=== PATIENT | female | born 1990 | race Two or more races ===

== ENCOUNTER 2019-02-04 09:20 | Inpatient (IN) | payer OTHER ==
[2019-02-04] MEDS: ELECTROLYTE-148 SOLN 1,000 ML IV SCH ×3 (10:00→22:00)
[2019-02-04 10:27] LABS: BASO % 0.3 % (0-2.0); HEMATOCRIT 33.6 % (32.4-45.2); LYMPH % 18.9 % (8-40); MCH 28.5 pg (25.7-33.7); MCHC 32.9 g/dl (32.0-36.0); MEAN CELL VOLUME 86.8 fl (80-96); MEAN PLT VOLUME 10.5 fl (7.5-11.1); MONO % 4.7 % (3.8-10.2); NEUT % 75.1 % (42.8-82.8); PLATELET COUNT 191 K/MM3 (134-434); RBC 3.87 M/mm3 (3.60-5.2); RDW 15.2 % (11.6-15.6); WHITE BLOOD COUNT 9.9 K/mm3 (4.0-10.0)
[2019-02-04 10:41] LABS: INR 0.88 (0.83-1.09); PROTHROMBIN TIME (PATIENT) 10.4 SEC (9.7-13.0)
[2019-02-04 10:55] LABS: BLOOD UREA NITROGEN 6.6 mg/dL (7-18); CALCIUM 8.9 mg/dL (8.5-10.1); CREATININE 0.9 mg/dL (0.55-1.3); POTASSIUM 3.6 mmol/L (3.5-5.1)
--- NOTE | 2019-02-04 11:05 | HP ---
Admitting History and Physical - Primary Care Physician PCP: Ron Rawls - Admission Chief Complaint: induction of labor History Source: Patient Limitations to Obtaining History: No Limitations - Past Medical History WEIR FISHER: No: Alzheimer's, CVA, Dementia, Migraine, Multiple Sclerosis, Peripheral Neuropathy, Parkinson's, Seizure, Syncope, TIA, Vertigo, Other Cardiovascular: No: AFIB, Aneurysm, Aortic Insufficiency, Aortic Stenosis, CAD, CHF, Deep Vein Thrombosis, HTN, Hyperlipdemia, UT, Mitral Insufficiency, Mitral Stenosis, Murmur, Pulmonary Hypertension, Other Pulmonary: No: Asthma, Bronchitis, Cancer, COPD, O2 Dependent, Pneumonia, Previously Intubated, Pulmonary Embolus, Pulmonary Fibrosis, Sleep Apnea, Other Gastrointestinal: No: Ascites, Cancer, Constipation, Crohn's Disease, Diverticulitis, Diverticulosis, Esophageal Varices, Gastritis, GERD, GI Bleed, Hemorrhoids, Hiatal Hernia, Inflamatory Bowel Disease, Irritable Bowel Disease, Pancreatitis, Peptic Ulcer Disease, Ulcerative Colitis, Other Hepatobiliary: No: Cirrhosis, Cholelithiasis, Cholecystitis, Choledocholithiasis , Hepatitis A, Hepatitis B, Hepatitis C, Other Renal/: No: Renal Failure, Renal Inusuff, BPH, Cancer, Hematuria, Hemodialysis , Neurogenic Bladder, Renal Calculi, UTI, Other Reproductive: No: Ectopic , Endometriosis, Fibroids, PID, Polycystic Ovary Syndrome, Postmenopausal, Other Heme/Onc: No: Anemia, B12 Deficiency, Bleeding Disorder, Cancer, Current Chemotherapy, Current Radiation Therapy, Hemochromatosis, Hypercoaguable State, Myeloproliferative Synd, Sickle Cell Disease, Sickle Cell Trait, Thrombocytopenia, Other Infectious Disease: No: AIDS, C-Diff, Herpes Zoster, HIV, MRSA, STD's, Tuberculosis, VREF, Other Psych: No: Addictions, Anxiety, Bipolar, Depression, Panic, Psychosis, Schizophrenia, Other Musculoskeletal: No: Bursitis, Chronic low back pain, Hemiparesis, Hemiplegia, Osteoarthritis, Paraplegia, Other Rheumatology: No: Fibromyalgia, Gout, Lupus, Rheumatoid Arthritis, Sarcoidosis, Vasculitis, Other ENT: No: Allergic Rhinitis, Sinusitis, Other Endocrine: No: Sonoma's Disease, Brown's Disease, Diabetes Insipidus, Diabetes Mellitus, Hyperparathyroidism, Hyperthyroidism, Hypothyroidism, Osteopenia, SIADH, Other Dermatology: No: Basal Cell, Cellulitis, Eczema, Melanoma, Psoriasis, Squamous Cell, Other - Past Surgical History Past Surgical History: No: None, AAA Repair, AICD, Amputation, Appendectomy, Arthrosocopy, AV Fistula/Graft, Bariatric Surgery, Breast Biopsy, Bypass, CABG, Carotid Endarterectomy, Cataract Removal, Cholecystectomy, Colectomy, Colonoscopy, Colostomy, Craniotomy, , Cystectomy, Hernia Repair, Hysterectomy, Ileal Conduit, Ileosotomy, Joint Replacement, Kidney Transplant, Laminectomy, Liver Transplant, Mastectomy, Nephrectomy, Oopherectomy, Orchiectomy, Permanent Pacemaker, Prostatectomy, Splenectomy, Stent, Thoracotomy , TURP, Tonsillectomy, Tubal Ligation, Upper Endoscopy, Valve Replacement, Vasectomy, Vein Stripping/Ligation - Smoking History Smoking history: Never smoked - Alcohol/Substance Use Hx Alcohol Use: No - Social History History of Recent Travel: Yes (negative zika testing) Home Medications - Allergies Allergies/Adverse Reactions: Allergies Allergy/AdvReac Type Severity Reaction Status Date / Time No Known Allergies Allergy Verified 01/25/19 12:48 - Home Medications Home Medications: Ambulatory Orders Vit,Sergio 74/Iron/Folic [ Low Iron Tablet] 1 tab PO DAILY Family Medical History Family History: Unremarkable Review of Systems Findings/Remarks: regular contractions - Review of Systems Constitutional: reports: No Symptoms Eyes: reports: No Symptoms HENT: reports: No Symptoms Neck: reports: No Symptoms Cardiovascular: reports: No Symptoms Respiratory: reports: No Symptoms Gastrointestinal: reports: No Symptoms Genitourinary: reports: No Symptoms Breasts: reports: No Symptoms Reported Musculoskeletal: reports: No Symptoms Integumentary: reports: No Symptoms Neurological: reports: No Symptoms Endocrine: reports: No Symptoms Hematology/Lymphatic: reports: No Symptoms Psychiatric: reports: No Symptoms Physical Examination Vital Signs: as reported by nursing Findings/Remarks: 3/80/-3, intact membranes Constitutional: Yes: Well Nourished Eyes: Yes: WNL HENT: Yes: WNL Neck: Yes: WNL Cardiovascular: Yes: WNL Respiratory: Yes: Regular Gastrointestinal: Yes: WNL ...Rectal Exam: Yes: WNL Renal/: Yes: WNL Breast(s): Yes: WNL Musculoskeletal: Yes: WNL Extremities: Yes: WNL Edema: Yes Edema: LLE: Trace, RLE: Trace Integumentary: Yes: WNL Neurological: Yes: Alert, Oriented ...Motor Strength: WNL Psychiatric: Yes: Alert, Oriented Labs: CBC, BMP 02/04/19 09:44 Imaging - Results Ultrasound: Pending, Report Reviewed (all reports reviewed. EFW on 01/21/19 approximately 3400g), Image Reviewed, Other Assessment/Plan 28 y/o G1 @ 39.5wks by late 3rd trimester sono, [place] care [place]. PAtient reported an DIDIER of 01/25/19 given by [place]. According to this undocumented due date gestation would be 41.3wks along. Patient underwent complete work up as outpatient. FH measures 41.5cm and induction of labor previously discussed with the patient. All questions answered. Plan for induction discussed with MFM Dr Gabriel for possible discrepancy in dating. He expressed agreement with plan. -Expectant management -Re-evaluate accordingly
[2019-02-04 11:33] VITALS: BMI 30.7
--- NOTE | 2019-02-04 13:47 | PN ---
Ante-Partal Exam - Subjective Subjective: Patient evaluated for progression of labor Vital Signs: Vital Signs Temperature 97.8 F 02/04/19 12:00 Pulse Rate 77 02/04/19 12:00 Respiratory Rate 20 02/04/19 12:00 Blood Pressure 117/77 02/04/19 12:00 O2 Sat by Pulse Oximetry (%) Bleeding: No Headache: No Visual changes: No Right upper quadrant pain: No - Contractions Contractions: Yes Regularity: Regular Intensity: Mild/Mod Monitor Mode: External - Exam during Labor Heart Rate: 130 Variability: Moderate Category: I Monitor Accelerations: Present Monitor Decelerations: None Exam: Vaginal Dilatation (cm): 5 Effacement (%): 80 Amniotic Membrane Status: Intact Presentation: Vertex Station: -3 (ballotable) - Assessment/Plan Assessment/Plan: Active labor, FHT cat I, declined pain control, AROM held off due to ballotable head. -Expectant management -re-evaluate accordingly
[2019-02-04] MEDS ORDERED: BUTORPHANOL TARTRATE 1 MG/ML VIAL IVPB ONE (14:05)
--- NOTE | 2019-02-04 17:34 | PN ---
Ante-Partal Exam - Subjective Subjective: Patient evaluated for pain Vital Signs: Vital Signs Temperature 98.4 F 02/04/19 14:00 Pulse Rate 77 02/04/19 14:00 Respiratory Rate 18 02/04/19 14:00 Blood Pressure 125/75 02/04/19 14:00 O2 Sat by Pulse Oximetry (%) Bleeding: No Headache: No Visual changes: No Right upper quadrant pain: No - Contractions Contractions: Yes Regularity: Regular Intensity: Mod/Strong Monitor Mode: External - Exam during Labor Heart Rate: 130 Variability: Moderate Category: I Monitor Accelerations: Present Monitor Decelerations: None Exam: Vaginal Dilatation (cm): 5 Effacement (%): 80 Amniotic Membrane Status: Ruptured Amniotic Fluid: Clear Presentation: Vertex Station: -3 - Assessment/Plan Assessment/Plan: regular contractions, reassuring status, S/P AROM with clear fluid. Patient desires Epidural -Epidural ok -Re-check post epidural
[2019-02-04] MEDS ORDERED: NALOXONE HCL 0.4 MG/ML VIAL IVPUSH PRN (17:38)
[2019-02-04] MEDS ORDERED: LIDO 2%/EPI 1:200000 PRESRVFRE (20 ML SDVIAL) ONE ×2 (17:44→23:14)
[2019-02-04] MEDS: FENTANYL/BUPIVACAINE/NS/PF - PCEA - 50 ML DISP.SYRIN EP SCH ×2 (18:05→21:55)
[2019-02-04] MEDS ORDERED: FENTANYL/BUPIVACAINE/NS/PF - PCEA - 50 ML DISP.SYRIN EP ONE ×2 (18:08→21:52)
--- NOTE | 2019-02-04 19:43 | PN ---
Ante-Partal Exam - Subjective Subjective: Patient evaluated for post-epidural check. She feels comfortable Vital Signs: Vital Signs Temperature 97.8 F 02/04/19 18:00 Pulse Rate 86 02/04/19 19:27 Respiratory Rate 20 02/04/19 18:20 Blood Pressure 114/65 02/04/19 18:20 O2 Sat by Pulse Oximetry (%) 100 02/04/19 19:27 Bleeding: No Headache: No Visual changes: No Right upper quadrant pain: No - Contractions Contractions: Yes Regularity: Regular Intensity: Mod/Strong Monitor Mode: External - Exam during Labor Heart Rate: 150 Variability: Moderate Category: I Monitor Accelerations: Present Monitor Decelerations: None Exam: Vaginal Dilatation (cm): 7.5 Effacement (%): 90 Presentation: Vertex Station: -3 (asynclitic) Remarks: sutures palpated and internal digital rotation attempted - Assessment/Plan Assessment/Plan: 28 y/o G1 @ 39.5wks, late entry to care, active labor, S/P AROM, asynclitic, appropriate contraction pattern, reassuring status. -Expectant management
[2019-02-04] MEDS ORDERED: LIDOCAINE HCL 1% PRESERVATIVE FREE - 30ML VIAL ONE (21:17)
[2019-02-04] MEDS ORDERED: OXYTOCIN 20 UNITS in 0.9% NS 20 UNIT/1,000 ML INFUS.BAG IV ONE (21:17)
--- NOTE | 2019-02-04 21:50 | PN ---
Ante-Partal Exam - Subjective Subjective: Patient evaluated for progression of labor Vital Signs: Vital Signs Temperature 100.5 F H 02/04/19 21:00 Pulse Rate 88 02/04/19 20:30 Respiratory Rate 20 02/04/19 20:30 Blood Pressure 137/79 02/04/19 20:30 O2 Sat by Pulse Oximetry (%) 100 02/04/19 20:30 Bleeding: No Headache: No Visual changes: No Right upper quadrant pain: No - Contractions Contractions: Yes Regularity: Regular Intensity: Moderate Monitor Mode: External - Exam during Labor Heart Rate: 150 Variability: Minimal Category: II Monitor Accelerations: Absent Monitor Decelerations: Prolonged (recovered after intrauterine resuscitation efforts) Exam: Vaginal Dilatation (cm): 8 Effacement (%): 90 Amniotic Membrane Status: Ruptured Presentation: Vertex Station: -3 Remarks: asynclitic - Assessment/Plan Assessment/Plan: 28 y/o G1 @ 39.5wks, protracted labor, regular adequate contractions, S/P AROM and prolonged decel that recovered. Counseling carried out regarding incident. -re-evaluate -Continuous monitoring
[2019-02-04] MEDS ORDERED: CLINDAMYCIN PHOSPHATE 600 MG/4 ML VIAL ONE (22:40)
[2019-02-04] MEDS ORDERED: CLINDAMYCIN 900 MG PREMIX IVPB 900 MG/50 ML BAG IVPB ONE (22:43)
[2019-02-04] MEDS ORDERED: GENTAMICIN IVPB ONE (22:45)
[2019-02-04] MEDS ORDERED: DEXTROSE 5% IVPB ONE (22:45)
[2019-02-04] MEDS ORDERED: WATER IVPB ONE (22:45)
--- NOTE | 2019-02-04 22:50 | PN ---
Ante-Partal Exam - Subjective Subjective: Patient evaluated for maternal fever Vital Signs: Vital Signs Temperature 101.1 F H 02/04/19 22:00 Pulse Rate 93 H 02/04/19 21:55 Respiratory Rate 20 02/04/19 21:55 Blood Pressure 111/54 L 02/04/19 21:55 O2 Sat by Pulse Oximetry (%) 100 02/04/19 21:55 Bleeding: No Headache: No Visual changes: No Right upper quadrant pain: No - Contractions Contractions: Yes Regularity: Regular Intensity: Mod/Strong Monitor Mode: External - Exam during Labor Heart Rate: 150 Variability: Minimal, Moderate Category: II Monitor Accelerations: Absent Monitor Decelerations: None Exam: Vaginal Dilatation (cm): 8 Effacement (%): 90 Amniotic Membrane Status: Ruptured Presentation: Vertex Station: -3 (caput) - Assessment/Plan Assessment/Plan: 28 y/o @ 39.5wks, arrest of dilatation, FHT cat II, chorioamnionitis. Patient was counseled regarding indications for delivery due to arrest of dilatation -IV abx -Proceed with CD -Abx for 24 hours post-op
[2019-02-04] MEDS ORDERED: GENTAMICIN SO4 80 MG/2 ML VIAL ONE (23:02)
[2019-02-04] MEDS ORDERED: OXYTOCIN 20 UNITS in 0.9% NS 40 UNIT/2,000 ML INFUS.BAG IV ONE (23:14)
[2019-02-04] MEDS ORDERED: SUCCINYLCHOLINE CHLORIDE 200 MG/10 ML SYRINGE ONE (23:16)
[2019-02-04] MEDS ORDERED: PHENYLEPHRINE HCL 10 MG/1 ML SINGLE DOSE VIAL ONE (23:50)
[2019-02-04] MEDS ORDERED: SODIUM CHLORIDE 0.9% P/F 10 ML VIAL IJ ONE (23:51)
[2019-02-04] MEDS ORDERED: morphine SULFATE/PF 0.5 MG/ML (2cc Syringe - QUVA) ONE ×2 (23:55)
[2019-02-05 00:50] LABS: BASO % 0.6 % (0-2.0); EOS % 0.1 % (0-4.5); HEMATOCRIT 23.5 % (32.4-45.2); HEMOGLOBIN 7.5 GM/dL (10.7-15.3); MCH 28.3 pg (25.7-33.7); MEAN CELL VOLUME 88.2 fl (80-96); MEAN PLT VOLUME 9.7 fl (7.5-11.1); MONO % 4.6 % (3.8-10.2); NEUT % 83.7 % (42.8-82.8); PLATELET COUNT 140 K/MM3 (134-434); RBC 2.66 M/mm3 (3.60-5.2); RDW 15.4 % (11.6-15.6); WHITE BLOOD COUNT 14.1 K/mm3 (4.0-10.0)
[2019-02-05] MEDS ORDERED: oxyCODONE HCL 5 MG TABLET PO PRN (01:15)
--- NOTE | 2019-02-05 01:31 | OP ---
Operative Note - Note: Operative Date: 02/05/19 (dic#[id number]) Pre-Operative Diagnosis: Arrest of dilatation and chorioamnionitis Operation: LTCS Findings: see dictation Post-Operative Diagnosis: Same as Pre-op Surgeon: Ron Rawls Improvement Intern: Tani Emerson Anesthesia: Spinal Specimens Removed: placenta Estimated Blood Loss (mls): 900 Operative Report Dictated: Yes
[2019-02-05 01:48] LABS: BLOOD UREA NITROGEN 8.5 mg/dL (7-18); CREATININE 1.2 mg/dL (0.55-1.3); POTASSIUM 3.8 mmol/L (3.5-5.1)
[2019-02-05 01:49] LABS: ALBUMIN 1.6 g/dl (3.4-5.0); BILIRUBIN,TOTAL 1.2 mg/dL (0.2-1); TOT PROT 4.2 g/dl (6.4-8.2)
[2019-02-05 01:51] LABS: CALCIUM 6.9 mg/dL (8.5-10.1)
[2019-02-05] MEDS: OXYTOCIN 20 UNITS in 0.9% NS 20 UNIT/1,000 ML INFUS.BAG IV SCH (03:00)
--- NOTE | 2019-02-05 04:05 | RAPID ---
Physical Examination Vital Signs: Vital Signs Temperature 101.1 F H 02/04/19 22:00 Pulse Rate 93 H 02/04/19 21:55 Respiratory Rate 20 02/04/19 21:55 Blood Pressure 111/54 L 02/04/19 21:55 O2 Sat by Pulse Oximetry (%) 100 02/04/19 21:55 Labs: CBC, BMP 02/05/19 00:38 02/05/19 00:38 Rapid Response - Rapid Response Assessment: Rapid response called at 03:34 and the team responded immediately. Pt s/p c- section, where she developed SOB, tachycardia, and CP. She received IV benadryl and wide open fluids. Pt found in room 6 laying in bed with o2 face mask. BP 124/65 HR 109 and she c/o dizziness, CP, and SOB with sensation of phlegm in her throat. She denies CUMMINGS, blurry vision, dark vision, and leg pain. On exam she was AOx3, wearing 02 face mask. ALEKSANDRA, EOMI. Lungs CTAB with no wheezes or adventitious lung sounds. She was tachycardic with normal rhythm, s1 and s2 no additional heart sounds, no rubs, gallops, or murmurs. Abdomen distended, tender. Vaginal bleeding present approx quantity: blood on pad. Capillary refill under 2 seconds in all limbs. No calf tenderness. Stat ABG, CXR, EKG, CBC, CMP with lactate and troponins ordered. 2 L NS given. Pt reported improvement of symptoms. Primary team made aware.
[2019-02-05 04:23] LABS: ANISOCYTOSIS 1+
[2019-02-05 04:24] LABS: PLATELET ESTIMATE SLT DECREASE
[2019-02-05 04:30] LABS: ALBUMIN 1.5 g/dl (3.4-5.0); BILIRUBIN,TOTAL 1.6 mg/dL (0.2-1); BLOOD UREA NITROGEN 8.1 mg/dL (7-18); CREATININE 1.2 mg/dL (0.55-1.3); TOT PROT 4.1 g/dl (6.4-8.2)
[2019-02-05 04:34] LABS: ARTERIAL BLD GAS O2 SATURATION 99.6 % (95-98); ARTERIAL BLOOD GAS BASE EXCESS -3.1 meq/l (-2-2); ARTERIAL BLOOD GAS PCO2 33.2 mmHg (35-45); ARTERIAL BLOOD GAS PO2 313 mmHg (80-100); ARTERIAL BLOOD GAS pH 7.41 (7.35-7.45)
--- NOTE | 2019-02-05 05:03 | PN ---
Post Progress Note - Subjective Subjective: Patient evaluated following an episode of difficulty breathing, tachycardia and sating down to 90's. Patient reports presentation has subsided. Post Day: 0 Type of Delivery: Primary C/S Vital Signs: Vital Signs Temperature 101.1 F H 02/04/19 22:00 Pulse Rate 93 H 02/04/19 21:55 Respiratory Rate 20 02/04/19 21:55 Blood Pressure 111/54 L 02/04/19 21:55 O2 Sat by Pulse Oximetry (%) 100 02/04/19 21:55 Breast Exam: Yes: Other (deferred) Uterus: Yes: Fundus Firm Incision: Yes: Dressing dry and intact Abdomen/GI: Yes: Abdomen soft Lochia, amount: Moderate Extremities: Yes: Calves non-tender - Labs Labs: CBC WBC 14.1 K/mm3 (4.0-10.0) H 02/05/19 00:38 RBC 2.66 M/mm3 (3.60-5.2) L 02/05/19 00:38 Hgb 7.5 GM/dL (10.7-15.3) L 02/05/19 00:38 Hct 23.5 % (32.4-45.2) L D 02/05/19 00:38 MCV 88.2 fl (80-96) 02/05/19 00:38 MCH 28.3 pg (25.7-33.7) 02/05/19 00:38 MCHC 32.0 g/dl (32.0-36.0) 02/05/19 00:38 RDW 15.4 % (11.6-15.6) 02/05/19 00:38 Plt Count 140 K/MM3 (134-434) D 02/05/19 00:38 MPV 9.7 fl (7.5-11.1) 02/05/19 00:38 Absolute Neuts (auto) 11.8 K/mm3 (1.5-8.0) H 02/05/19 00:38 Neutrophils % 83.7 % (42.8-82.8) H 02/05/19 00:38 Neutrophils % (Manual) 83.0 % (42.8-82.8) H 02/05/19 00:38 Band Neutrophils % 4.0 % 02/05/19 00:38 Lymphocytes % 11.0 % (8-40) D 02/05/19 00:38 Lymphocytes % (Manual) 5.0 % (8-40) L 02/05/19 00:38 Monocytes % 4.6 % (3.8-10.2) 02/05/19 00:38 Monocytes % (Manual) 8 % (3.8-10.2) 02/05/19 00:38 Eosinophils % 0.1 % (0-4.5) D 02/05/19 00:38 Basophils % 0.6 % (0-2.0) 02/05/19 00:38 Nucleated RBC % 0 % (0-0) 02/05/19 00:38 Platelet Estimate Slt decrease 02/05/19 00:38 Anisocytosis 1+ 02/05/19 00:38 Microcytosis 1+ 02/05/19 00:38 Assessment/Plan POD # 0 S/P LTCS for arrest of dilatation and choriamnionitis. Episode of tachycardia, SOB, sating down to 90's. Patient was alert and oriented x 2. Similar presentation following CD. Rapid response called and consult note and partial labs/imaging reviewed. Patient is current in stable condition with mild tachycardia only. -Stat CBC -COntinue close observation -IV fluids -Spiral CT to rule out PE -pain control -Continue IV abx for chorio -SCDs
[2019-02-05 05:06] LABS: BASO % 0.2 % (0-2.0); HEMATOCRIT 21.9 % (32.4-45.2); HEMOGLOBIN 7.4 GM/dL (10.7-15.3); LYMPH % 7.3 % (8-40); MCH 28.7 pg (25.7-33.7); MCHC 33.8 g/dl (32.0-36.0); MEAN CELL VOLUME 84.9 fl (80-96); MEAN PLT VOLUME 10.4 fl (7.5-11.1); MONO % 3.2 % (3.8-10.2); NEUT % 89.3 % (42.8-82.8); PLATELET COUNT 155 K/MM3 (134-434); RBC 2.58 M/mm3 (3.60-5.2); RDW 15.3 % (11.6-15.6); WHITE BLOOD COUNT 11.6 K/mm3 (4.0-10.0)
[2019-02-05] MEDS: METHYLERGONOVINE MALEATE 0.2 MG TABLET (FP) PO SCH ×5 (05:15→21:57)
[2019-02-05] MEDS ORDERED: ACETAMINOPHEN 1000 MG/100 ML VIAL (NON FORMULARY) IVPB ONE (05:30)
[2019-02-05] MEDS ORDERED: ACETAMINOPHEN INJECTION 100 ML IVPB ONE (05:51)
[2019-02-05] MEDS: AMPICILLIN NA/SULBACTAM NA 3 GM in SODIUM CHLORIDE 100 ML IVPB SCH ×4 (06:15→21:57)
--- NOTE | 2019-02-05 07:31 | OP ---
DATE OF OPERATION: 02/05/2019 PREOPERATIVE DIAGNOSIS: A 28-year-old 2, para 0-0-1-0, at 39-5/7 weeks gestation, arrest of dilatation, chorioamnionitis, heart rate category 2. POSTOPERATIVE DIAGNOSIS: A 28-year-old 2, para 0-0-1-0, at 39-5/7 weeks gestation, arrest of dilatation, chorioamnionitis, heart rate category 2. PROCEDURE PERFORMED: Repeat low transverse section. SURGEON: Amauri Breaux MD TILE LAYER SUPERVISOR: BRANDON Luna ANESTHESIA: Spinal. ESTIMATED BLOOD LOSS FOR THE PROCEDURE: 900 mL. INTRAVENOUS FLUIDS: Per Anesthesia. URINE OUTPUT: Concentrated, nonbloody. FINDINGS: Normal anterior abdominal wall anatomy. Infant in cephalic presentation. Clear amniotic fluid. No nuchal cord present. large for gestational age. Uterus, bilateral fallopian tubes and ovaries consistent with normal anatomy. Bladder dome and rectus muscle fascial interface was noted to be intact. DESCRIPTION OF PROCEDURE: The patient was taken to the operating room, where anesthesia was found to be adequate. She was then prepped and draped in a normal sterile fashion. Then a Og catheter was placed atraumatically. A proper time-out took place. A Pfannenstiel skin incision was made with a scalpel and carried to the underlying fascia with the Bovie. The fascia was incised in the midline and the incision extended laterally with sharp dissection. Subcutaneous bleeding was cauterized with Bovie cautery. The underlying rectus muscles were dissected off sharply and bluntly. The peritoneum was entered bluntly and extended laterally with blunt and sharp dissection. A bladder blade was placed and the lower uterine segment was noted to be effaced. A transverse lower uterine segment incision was made with a scalpel approximately 5 cm above the vesicouterine junction. The incision was extended laterally with blunt dissection. The was elevated through the surgical incision and delivered without difficulty with mild fundal pressure. The umbilical cord was clamped after a delay and samples for gasses and blood obtained. The placenta was delivered manually and intact, after the infant was handed off to NICU staff. The uterus was exteriorized through the surgical incision and the lower uterine segment incision was reapproximated with 1-0 Polysorb running locked sutures. Excellent structural reapproximation was achieved and confirmed by digital palpation by the surgeon. The uterus was internalized into the pelvic cavity, and gutters were cleared of all clots and debris. A second inspection of the uterine incision revealed excellent hemostasis again. Bladder dome and rectus muscle-fascial interface was noted to be dry. Examination of the entire surgical field revealed no active bleeding. The fascial incision was reapproximated with 0 Polysorb running non-locking sutures. Excellent structural reapproximation was achieved and confirmed by digital palpation by the surgeon. The subcutaneous tissues were reapproximated with 2-0 chromic, and the skin incision was reapproximated with surgical jose. The instrument count was reported as correct x2 by the staff. The patient was hypotensive at the conclusion of the procedure. The fundus was firm. Hemabate and Methergine were administered prior to leaving the OR. IV fluid resuscitation was provided by Anesthesia, and the patient transferred out of the OR. AMAURI BREAUX MD [id number]
[2019-02-05] MEDS ORDERED: NALOXONE HCL 0.4 MG/ML VIAL IVPUSH PRN (07:36)
[2019-02-05] MEDS ORDERED: FENTANYL/BUPIVACAINE/NS/PF - PCEA - 50 ML DISP.SYRIN EP SCH (07:45)
--- NOTE | 2019-02-05 10:33 | EKG ---
Test Reason : Blood Pressure : / mmHG Vent. Rate : 103 BPM Atrial Rate : 103 BPM P-R Int : 136 ms QRS Dur : 068 ms QT Int : 342 ms P-R-T Axes : 059 044 039 degrees QTc Int : 448 ms POOR DATA QUALITY, INTERPRETATION MAY BE ADVERSELY AFFECTED SINUS TACHYCARDIA OTHERWISE NORMAL ECG NO PREVIOUS ECGS AVAILABLE Confirmed by Emil Beard MD ([id number]) on 02/05/2019 10:32:53 AM Referred By: Confirmed By:Emil Beard MD
[2019-02-05] MEDS: IBUPROFEN 600 MG TABLET (FP) PO PRN (17:23)
[2019-02-05] MEDS: ACETAMINOPHEN 325 MG TABLET (FP) PO PRN (17:23)
[2019-02-06] MEDS ORDERED: BISACODYL 10 MG SUPP.RECT RC PRN (01:15)
[2019-02-06] MEDS: AMPICILLIN NA/SULBACTAM NA 3 GM in SODIUM CHLORIDE 100 ML IVPB SCH (03:27)
--- NOTE | 2019-02-06 08:09 | PN ---
Post Progress Note - Subjective Subjective: no c/o pain , scale 5-6/10 passing flatus , tolerating diet no c/o vomiting or nausea no c/o dizziness ambulating without problems Post Day: 1 Type of Delivery: Primary C/S Vital Signs: Vital Signs Temperature 97.4 F L 02/06/19 06:31 Pulse Rate 93 H 02/06/19 06:31 Respiratory Rate 20 02/06/19 06:31 Blood Pressure 116/71 02/06/19 06:31 O2 Sat by Pulse Oximetry (%) 96 02/05/19 06:30 Breast Exam: Yes: Soft, Other (pumping milk ). No: Engorged Uterus: Yes: Fundus Firm, Fundus below umbilicus, Non-tender Incision: Yes: [place] intact. No: Redness, Oozing Abdomen/GI: Yes: Abdomen soft, Passing flatus, Tolerating PO (diet). No: Abdominal Distention, Tender Lochia: Yes: Rubra Lochia, amount: Small Extremities: Yes: Calves non-tender, Edema Perineum: Yes: Intact Activity: Ambulating - Labs Labs: CBC WBC 11.6 K/mm3 (4.0-10.0) H 02/05/19 03:50 RBC 2.58 M/mm3 (3.60-5.2) L 02/05/19 03:50 Hgb 7.4 GM/dL (10.7-15.3) L 02/05/19 03:50 Hct 21.9 % (32.4-45.2) L 02/05/19 03:50 MCV 84.9 fl (80-96) 02/05/19 03:50 MCH 28.7 pg (25.7-33.7) 02/05/19 03:50 MCHC 33.8 g/dl (32.0-36.0) 02/05/19 03:50 RDW 15.3 % (11.6-15.6) 02/05/19 03:50 Plt Count 155 K/MM3 (134-434) 02/05/19 03:50 MPV 10.4 fl (7.5-11.1) 02/05/19 03:50 Absolute Neuts (auto) 10.4 K/mm3 (1.5-8.0) H 02/05/19 03:50 Neutrophils % 89.3 % (42.8-82.8) H 02/05/19 03:50 Neutrophils % (Manual) 83.0 % (42.8-82.8) H 02/05/19 00:38 Band Neutrophils % 4.0 % 02/05/19 00:38 Lymphocytes % 7.3 % (8-40) L D 02/05/19 03:50 Lymphocytes % (Manual) 5.0 % (8-40) L 02/05/19 00:38 Monocytes % 3.2 % (3.8-10.2) L 02/05/19 03:50 Monocytes % (Manual) 8 % (3.8-10.2) 02/05/19 00:38 Eosinophils % 0.0 % (0-4.5) D 02/05/19 03:50 Basophils % 0.2 % (0-2.0) 02/05/19 03:50 Nucleated RBC % 0 % (0-0) 02/05/19 03:50 Platelet Estimate Slt decrease 02/05/19 00:38 Anisocytosis 1+ 02/05/19 00:38 Microcytosis 1+ 02/05/19 00:38 Other Findings, Remarks: rs cta i/o [id number] Problem List - Problems (1) Status post section routine follow-up Code(s): Z39.2 - ENCOUNTER FOR ROUTINE FOLLOW-UP; Z98.891 - HISTORY OF UTERINE SCAR FROM PREVIOUS SURGERY (2) Anemia Code(s): D64.9 - ANEMIA, UNSPECIFIED Assessment/Plan po day#1 . s/p primary c/section due to FTP & chorioamnionitis po severe Anemia , s/p 1 pack cell unit transfusion Plan repeat cbc today pending ct po care
[2019-02-06 09:34] LABS: BASO % 0.3 % (0-2.0); EOS % 0.3 % (0-4.5); HEMATOCRIT 23.8 % (32.4-45.2); LYMPH % 8.7 % (8-40); MCH 29.2 pg (25.7-33.7); MCHC 33.7 g/dl (32.0-36.0); MEAN CELL VOLUME 86.6 fl (80-96); MEAN PLT VOLUME 10.1 fl (7.5-11.1); MONO % 2.5 % (3.8-10.2); NEUT % 88.2 % (42.8-82.8); PLATELET COUNT 180 K/MM3 (134-434); RBC 2.75 M/mm3 (3.60-5.2); RDW 15.6 % (11.6-15.6); WHITE BLOOD COUNT 18.7 K/mm3 (4.0-10.0)
[2019-02-06] MEDS ORDERED: FLU VACCINE QUAD 60 MCG/0.5 ML (MDV 19-20) IM ONE (10:00)
[2019-02-06] MEDS ORDERED: DIPHTH,PERTUSS(ACELL),TET 0.5 ML DISP.SYRIN IM ONE (10:00)
[2019-02-06] MEDS ORDERED: FLU VACC QS2019-20(6MOS UP)/PF 60 MCG/0.5 ML SYRINGE IM ONE (10:30)
[2019-02-06] MEDS: ACETAMINOPHEN 325 MG TABLET (FP) PO PRN (11:19)
[2019-02-06] MEDS: SIMETHICONE 80 MG TAB.CHEW (FP) PO PRN (11:20)
[2019-02-06] MEDS: IBUPROFEN 600 MG TABLET (FP) PO PRN (11:20)
[2019-02-06] MEDS: OXYTOCIN 20 UNITS in 0.9% NS 20 UNIT/1,000 ML INFUS.BAG IV SCH (14:00)
--- NOTE | 2019-02-07 05:27 | PN ---
Post Progress Note - Subjective Subjective: 28 yo Para 1 status post primary , seen and evaluated. Doing well. Post Day: 2 Type of Delivery: Primary C/S Vital Signs: Vital Signs Temperature 97.3 F L 02/06/19 21:35 Pulse Rate 105 H 02/06/19 21:35 Respiratory Rate 20 02/06/19 21:35 Blood Pressure 100/50 L 02/06/19 21:35 O2 Sat by Pulse Oximetry (%) 96 02/05/19 06:30 Uterus: Yes: Fundus below umbilicus Incision: Yes: Dressing dry and intact Abdomen/GI: Yes: Abdomen soft, Tolerating PO Lochia: Yes: Rubra Lochia, amount: Small Extremities: Yes: Calves non-tender Activity: Ambulating - Labs Labs: CBC WBC 18.7 K/mm3 (4.0-10.0) H 02/06/19 09:10 RBC 2.75 M/mm3 (3.60-5.2) L 02/06/19 09:10 Hgb 8.0 GM/dL (10.7-15.3) L 02/06/19 09:10 Hct 23.8 % (32.4-45.2) L 02/06/19 09:10 MCV 86.6 fl (80-96) 02/06/19 09:10 MCH 29.2 pg (25.7-33.7) 02/06/19 09:10 MCHC 33.7 g/dl (32.0-36.0) 02/06/19 09:10 RDW 15.6 % (11.6-15.6) 02/06/19 09:10 Plt Count 180 K/MM3 (134-434) 02/06/19 09:10 MPV 10.1 fl (7.5-11.1) 02/06/19 09:10 Absolute Neuts (auto) 16.5 K/mm3 (1.5-8.0) H 02/06/19 09:10 Neutrophils % 88.2 % (42.8-82.8) H 02/06/19 09:10 Neutrophils % (Manual) 83.0 % (42.8-82.8) H 02/05/19 00:38 Band Neutrophils % 4.0 % 02/05/19 00:38 Lymphocytes % 8.7 % (8-40) 02/06/19 09:10 Lymphocytes % (Manual) 5.0 % (8-40) L 02/05/19 00:38 Monocytes % 2.5 % (3.8-10.2) L 02/06/19 09:10 Monocytes % (Manual) 8 % (3.8-10.2) 02/05/19 00:38 Eosinophils % 0.3 % (0-4.5) D 02/06/19 09:10 Basophils % 0.3 % (0-2.0) 02/06/19 09:10 Nucleated RBC % 0 % (0-0) 02/06/19 09:10 Platelet Estimate Slt decrease 02/05/19 00:38 Anisocytosis 1+ 02/05/19 00:38 Microcytosis 1+ 02/05/19 00:38 Assessment/Plan Status post primary Ambulation Analgesia as needed Continue routine post op care
[2019-02-07] MEDS: ACETAMINOPHEN 325 MG TABLET (FP) PO PRN ×2 (07:22→21:23)
[2019-02-07] MEDS: IBUPROFEN 600 MG TABLET (FP) PO PRN ×2 (07:23→21:24)
[2019-02-07] MEDS: SIMETHICONE 80 MG TAB.CHEW (FP) PO PRN (21:23)
[2019-02-08 08:33] LABS: BASO % 0.5 % (0-2.0); EOS % 3.2 % (0-4.5); HEMATOCRIT 20.4 % (32.4-45.2); LYMPH % 24.6 % (8-40); MCH 29.3 pg (25.7-33.7); MCHC 33.1 g/dl (32.0-36.0); MEAN CELL VOLUME 88.4 fl (80-96); MEAN PLT VOLUME 8.9 fl (7.5-11.1); MONO % 3.4 % (3.8-10.2); NEUT % 68.3 % (42.8-82.8); PLATELET COUNT 258 K/MM3 (134-434); RBC 2.31 M/mm3 (3.60-5.2); RDW 15.9 % (11.6-15.6); WHITE BLOOD COUNT 8.1 K/mm3 (4.0-10.0)
[2019-02-08 08:51] LABS: HEMOGLOBIN 6.8 GM/dL (10.7-15.3)
[2019-02-08] MEDS: ACETAMINOPHEN 325 MG TABLET (FP) PO PRN ×3 (10:29→18:35)
[2019-02-08] MEDS: SIMETHICONE 80 MG TAB.CHEW (FP) PO PRN ×2 (10:29→14:34)
[2019-02-08] MEDS: IBUPROFEN 600 MG TABLET (FP) PO PRN ×2 (10:30→20:00)
--- NOTE | 2019-02-08 12:46 | DS ---
Physical Examination Vital Signs: Vital Signs Temperature 98.2 F 02/08/19 02:00 Pulse Rate 81 02/08/19 02:00 Respiratory Rate 18 02/08/19 02:00 Blood Pressure 123/68 02/08/19 02:00 O2 Sat by Pulse Oximetry (%) 96 02/05/19 06:30 Findings/Remarks: Patient is ambulating, tolerating PO, lochia decreased, voiding, reports mild fatigue and headache on ambulation Constitutional: Yes: Well Nourished HENT: Yes: Atraumatic Neck: Yes: Supple Respiratory: Yes: Regular Gastrointestinal: Yes: Soft, Other ...Rectal Exam: Yes: Other Renal/: Yes: Other (deferred) Breast(s): Yes: Other (deferred) Musculoskeletal: Yes: WNL Extremities: Yes: WNL Edema: Yes Edema: LLE: Trace, RLE: Trace Integumentary: Yes: WNL Wound/Incision: Yes: Clean/Dry, Kyung Intact Neurological: Yes: Alert, Oriented ...Motor Strength: WNL Psychiatric: Yes: Alert, Oriented Labs: CBC, BMP 02/08/19 07:40 02/05/19 03:50 Discharge Summary Problems reviewed: Yes Reason For Visit: INDUCTION OF LABOR Current Active Problems Anemia (Acute) Status post section routine follow-up (Acute) Procedures: Principal: LTCS Hospital Course: Patient underwent induction due to suspected late term. CD performed due to arrest of dilatation and chorioamnionitis. Patient underwent complete work up for hypotension, SOB, and chest pain following surgery. It was negative. Severe symptomatic anemia diagnosed and patient counseled regarding need for PRBC. All questions answered and patient agrees with plan. Patient will be discharge home with short follow up at health center. PP/post-op precautions discussed. Health Concerns: Anemia Post-op care Plan of Treatment: Please follow up instructions as given. Call MD with any questions or concerns. Follow up within a week at health center Condition: Stable - Instructions Diet, Activity, Other Instructions: Please follow up within a week at health center. Call MD with any questions or concerns. Referrals: Ron Rawls MD [Staff Physician] - Disposition: HOME - Home Medications Comprehensive Discharge Medication List: Ambulatory Orders Vit,Sergio 74/Iron/Folic [ Low Iron Tablet] 1 tab PO DAILY Acetaminophen [Tylenol] 650 mg PO Q6H PRN #14 capsule MDD 5 02/05/19 Ferrous Sulfate [Feosol] 325 mg PO DAILY #30 tablet 02/05/19 Ibuprofen 600 mg PO Q6H PRN #30 tablet 02/05/19 Oxycodone HCl 5 mg PO Q6H PRN #14 tablet MDD 5 02/05/19
[2019-02-08 15:00] LABS: BASO % 0.3 % (0-2.0); HEMATOCRIT 20.2 % (32.4-45.2); LYMPH % 19.8 % (8-40); MCH 29.1 pg (25.7-33.7); MCHC 33.3 g/dl (32.0-36.0); MEAN CELL VOLUME 87.5 fl (80-96); MEAN PLT VOLUME 8.6 fl (7.5-11.1); MONO % 3.7 % (3.8-10.2); NEUT % 73.2 % (42.8-82.8); PLATELET COUNT 275 K/MM3 (134-434); RBC 2.31 M/mm3 (3.60-5.2); WHITE BLOOD COUNT 8.9 K/mm3 (4.0-10.0)
[2019-02-08 15:04] LABS: HEMOGLOBIN 6.7 GM/dL (10.7-15.3)
[2019-02-09 09:26] LABS: HEMATOCRIT 26.4 % (32.4-45.2); HEMOGLOBIN 8.9 GM/dL (10.7-15.3); MCH 29.8 pg (25.7-33.7); MCHC 33.5 g/dl (32.0-36.0); MEAN CELL VOLUME 88.8 fl (80-96); MEAN PLT VOLUME 8.1 fl (7.5-11.1); PLATELET COUNT 334 K/MM3 (134-434); RBC 2.98 M/mm3 (3.60-5.2); RDW 15.8 % (11.6-15.6); WHITE BLOOD COUNT 10.4 K/mm3 (4.0-10.0)
[2019-02-09] MEDS ORDERED: oxyCODONE HCL 5 MG TABLET PO ONE (10:28)
--- NOTE | 2019-02-09 10:33 | PN ---
Post Progress Note - Subjective Subjective: Ambulating, tolerating PO lochia decreased, headache and fatigue subsided. She reports back discomfort at epidural site. PP/post-op precautions discussed. Post Day: 4 Type of Delivery: Primary C/S Vital Signs: Vital Signs Temperature 98.9 F 02/08/19 21:14 Pulse Rate 78 02/08/19 21:14 Respiratory Rate 20 02/08/19 21:14 Blood Pressure 110/68 02/08/19 21:14 O2 Sat by Pulse Oximetry (%) 96 02/05/19 06:30 Breast Exam: Yes: Other (deferred) Uterus: Yes: Fundus below umbilicus Incision: Yes: St[place]ett intact Abdomen/GI: Yes: Abdomen soft Lochia, amount: Moderate Extremities: Yes: Calves non-tender Perineum: Yes: Intact Activity: Ambulating - Labs Labs: CBC WBC 10.4 K/mm3 (4.0-10.0) H 02/09/19 08:45 RBC 2.98 M/mm3 (3.60-5.2) L 02/09/19 08:45 Hgb 8.9 GM/dL (10.7-15.3) L 02/09/19 08:45 Hct 26.4 % (32.4-45.2) L D 02/09/19 08:45 MCV 88.8 fl (80-96) 02/09/19 08:45 MCH 29.8 pg (25.7-33.7) 02/09/19 08:45 MCHC 33.5 g/dl (32.0-36.0) 02/09/19 08:45 RDW 15.8 % (11.6-15.6) H 02/09/19 08:45 Plt Count 334 K/MM3 (134-434) D 02/09/19 08:45 MPV 8.1 fl (7.5-11.1) 02/09/19 08:45 Absolute Neuts (auto) 6.5 K/mm3 (1.5-8.0) 02/08/19 14:30 Neutrophils % 73.2 % (42.8-82.8) 02/08/19 14:30 Neutrophils % (Manual) 83.0 % (42.8-82.8) H 02/05/19 00:38 Band Neutrophils % 4.0 % 02/05/19 00:38 Lymphocytes % 19.8 % (8-40) 02/08/19 14:30 Lymphocytes % (Manual) 5.0 % (8-40) L 02/05/19 00:38 Monocytes % 3.7 % (3.8-10.2) L 02/08/19 14:30 Monocytes % (Manual) 8 % (3.8-10.2) 02/05/19 00:38 Eosinophils % 3.0 % (0-4.5) 02/08/19 14:30 Basophils % 0.3 % (0-2.0) 02/08/19 14:30 Nucleated RBC % 0 % (0-0) 02/08/19 14:30 Platelet Estimate Slt decrease 02/05/19 00:38 Anisocytosis 1+ 02/05/19 00:38 Microcytosis 1+ 02/05/19 00:38 Assessment/Plan POD# 4 in stable condition following PRBC. Delivery complicated by chorio and severe post-op anemia. PAtient underwent complete work up for chest pain and SOB post-operatively, it was negative. Patient is cleared for discharge. She was instructed to follow up at health center within a week. PP/post-op precautions discussed at length.
[2019-02-09 14:42] VITALS: BP 110/62; PULSE 80; TEMP 98
--- NOTE | 2019-02-11 17:00 | PATH ---
Surgical Pathology Report Patient Name: MADELINE KELLER [facility]. Rec. #: [id number] /Age/Gender: 1990 (Age: 28) / F Account: [id number] Location: [facility] OBS/AQUATIC ECOLOGIST Taken: 02/04/2019 Received: 02/05/2019 Reported: 02/11/2019 Physicians: Ron Rawls MD Specimen(s) Received PLACENTA Clinical History , 39.5 weeks gestation, primary for arrested dilation and chorioamnionitis Final Diagnosis PLACENTA, SECTION: 596 G THIRD TRIMESTER PLACENTA WITH MODERATE ACUTE CHORIOAMNIONITIS AND TRIVASCULAR UMBILICAL CORD WITH FOCAL MILD PHLEBITIS. Electronically Signed Tisha Marin M.D. Gross Description The specimen is received fresh labeled placenta and is a 596 gram, 19.5 x 18.0 x 3.0 cm. placenta with attached membranes and umbilical cord. The attached membranes are lucas, thick, cloudy and insert marginally. The umbilical cord measures 15 cm. in length and averages 1 cm. in diameter. The cord inserts eccentrically, 0.5 cm. to the nearest margin. No true knots or strictures are identified. Cut surface of the umbilical cord reveals 3 vessels. The surface is acosta-blue with minimal fibrin deposition and appropriate caliber vessels. The maternal surface is red-brown with focal defects. Sectioning reveals red-brown, spongy parenchyma. No lesions are identified. [employer] sections are submitted in three cassettes as follows: 1- membrane rolls and umbilical cord; 2-3- full thickness sections of placenta. 02/08/2019 [facility]/08/2019
== END 2019-02-09 14:17 | disposition home or self-care (01) | DRG 540 ==
LOC: JLDR 09:20 → J3W 02-05 13:19
PROVIDERS: ADMIT Student in an Organized Health Care Education/Training Program; ATTEND Student in an Organized Health Care Education/Training Program
PROC: 10D00Z1 Extraction of Products of Conception, Low, Open Approach (ICD-10-PCS; principal; 2019-02-05)
PROC: 30233N1 Transfusion of Nonautologous Red Blood Cells into Peripheral Vein, Percutaneous Approach (ICD-10-PCS; 2019-02-05)
DX: O41.1230 Chorioamnionitis, third trimester, not applicable or unspecified (principal); O62.0 Primary inadequate contractions; O36.63X0 Maternal care for excessive fetal growth, third trimester, not applicable or unspecified; Z3A.39 39 weeks gestation of pregnancy; Z37.0 Single live birth; O90.89 Other complications of the puerperium, not elsewhere classified; R00.0 Tachycardia, unspecified; R07.89 Other chest pain; R06.02 Shortness of breath; O90.81 Anemia of the puerperium
CPT/HCPCS: 36415; 36430; 36511; 36600; 71045-TC-FY; 71275-TC; 80048; 80053; 82550; 82553; 82803; 83605; 84484; 85025; 85027; 85610; 85730; 86593; 86850; 86900; 86901; 86922; 87070; 87186; 87205; 87389; 88307-TC; 90686; 90715; 93005; 93010; J0131; P9038; P9058; Q9967